=== PATIENT | female | born 2000 | race Caucasian/White ===

== ENCOUNTER 2019-01-19 14:22 | Emergency (ER) | payer SELFPAY ==
[2019-01-19 14:29] VITALS: BP 140/86
[2019-01-19] MEDS ORDERED: CEPHALEXIN 500 MG CAPSULE PO ONE (15:24)
[2019-01-19] MEDS ORDERED: ACETAMINOPHEN 325 MG TABLET PO ONE (15:24)
--- NOTE | 2019-01-19 15:24 | ER Document Report ---
ED ENT - General Chief Complaint: Ear Pain Stated Complaint: RIGHT EAR PAIN, SWELLING/PIERCING Time Seen by Provider: 01/19/19 14:48 Mode of Arrival: Ambulatory Information source: Patient Notes: 18-year-old female presented to ED for complaint of pain and swelling to the right ear. She states she had her ear pierced about 3 or 4 months ago and the site was not quite healed and that she changed her earrings yesterday because the first set was given her problem. She states the area became red and swollen after changing her earrings and now there is drainage and crustiness on the back of the earring. She also has a swollen lymph node just below the ear on the right. Patient is alert oriented respirations regular and unlabored speaking in full sentences walking with a even steady gait. TRAVEL OUTSIDE OF THE [place] IN LAST 30 DAYS: No - HPI Patient complains to provider of: Other - Cellulitis to the right ear Onset: Yesterday Onset/Duration: Gradual Quality of pain: Sharp, Other - Pressure Severity: Moderate Location of pain: Ears - Uvulitis to the right ear Associated symptoms: Other - Cellulitis to the right ear Similar symptoms previously: No Recently seen / treated by doctor: No - Related Data Allergies/Adverse Reactions: ibuprofen Allergy (Verified 01/19/19 14:26) naproxen [From Aleve] Allergy (Verified 01/19/19 14:26) Past Medical History - General Information source: Patient - Social History Smoking Status: Never Smoker - This vapor cigarette Frequency of alcohol use: Rare 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 " Lives with: Friend Family History: Reviewed & Not Pertinent Patient has suicidal ideation: No Patient has homicidal ideation: No - Past Medical History Cardiac Medical History: Reports: None Pulmonary Medical History: Reports: None EENT Medical History: Reports: None Neurological Medical History: Reports: None Endocrine Medical History: Reports: None Renal/ Medical History: Reports: None Malignancy Medical History: Reports: None GI Medical History: Reports: None Musculoskeletal Medical History: Reports Hx Musculoskeletal Trauma - Sprained wrist Skin Medical History: Reports None Psychiatric Medical History: Reports: Hx Anxiety, Hx Depression, Hx Post Traumatic Stress Disorder Traumatic Medical History: Reports: None Infectious Medical History: Reports: None Surgical Hx: Negative Past Surgical History: Reports: None - Immunizations Immunizations up to date: Yes Hx Diphtheria, Pertussis, Tetanus Vaccination: Yes Review of Systems - Review of Systems Constitutional: No symptoms reported EENT: Ear pain - Redness and inflammation and swelling to the right ear from an infected earring Cardiovascular: No symptoms reported Respiratory: No symptoms reported Gastrointestinal: No symptoms reported Genitourinary: No symptoms reported Female Genitourinary: No symptoms reported Musculoskeletal: No symptoms reported Skin: Change in color - Erythema swelling and inflammation with drainage from the ear ring site to the right ear Hematologic/Lymphatic: No symptoms reported Neurological/Psychological: No symptoms reported -: Yes All other systems reviewed and negative Physical Exam - Vital signs Vitals: Temp Pulse Resp BP Pulse Ox 98.2 F 111 H 16 140/86 H 99 01/19/19 14:28 01/19/19 14:28 01/19/19 14:28 01/19/19 14:28 01/19/19 14:28 Interpretation: Normal - General General appearance: Appears well, Alert - HEENT Head: Atraumatic, Tenderness - Right ear cellulitis Eyes: Normal Pupils: PERRL Ears: Other - Cellulitis to the outer cartilage of the right ear as well as lymphadenopathy behind the ear due to infected ear ring External canal: Normal Tympanic membrane: Normal Sinus: Normal Nasal: Normal Mouth/Lips: Normal Mucous membranes: Normal Pharynx: Normal Neck: Lymphadenopathy, Other - Lymphadenopathy to the lymph nodes behind the right ear - Respiratory Respiratory status: No respiratory distress Chest status: Nontender Breath sounds: Normal Chest palpation: Normal - Cardiovascular Rhythm: Regular Heart sounds: Normal auscultation Murmur: No - Abdominal Inspection: Normal Distension: No distension Bowel sounds: Normal Tenderness: Nontender Organomegaly: No organomegaly - Back Back: Normal, Nontender - Extremities General upper extremity: Normal inspection, Nontender, Normal color, Normal ROM, Normal temperature General lower extremity: Normal inspection, Nontender, Normal color, Normal ROM, Normal temperature, Normal weight bearing. No: Selam's sign - Neurological Neuro grossly intact: Yes Cognition: Normal Orientation: AAOx4 Golden Coma Scale Eye Opening: Spontaneous Jacquelin Coma Scale Verbal: Oriented Golden Coma Scale Motor: Obeys Commands Golden Coma Scale Total: 15 Speech: Normal Motor strength normal: LUE, RUE, LLE, RLE Sensory: Normal - Psychological Associated symptoms: Normal affect, Normal mood - Skin Skin Temperature: Warm Skin Moisture: Dry Skin Color: Normal Course - Re-evaluation Re-evalutation: 01/19/19 21:39 Is removed from the right ear and placed in a specimen container for patient to take home. Right ear was cleaned with Shur-Clens and rinsed and patient was started on Keflex and Tylenol was provided. Patient was given instructions on cleaning the site and leaving the earrings out until it is healed. Patient was discharged home with prescription for Keflex. Patient to follow-up with primary doctor. - Vital Signs Vital signs: Temp Pulse Resp BP Pulse Ox 98.2 F 111 H 16 140/86 H 99 01/19/19 14:28 01/19/19 14:28 01/19/19 14:28 01/19/19 14:28 01/19/19 14:28 Discharge - Discharge Clinical Impression: Cellulitis of right ear Condition: Stable Disposition: HOME, SELF-CARE Instructions: Family Physicians / Practices Additional Instructions: CELLULITIS: You have an infection of your skin and underlying soft tissues called cellulitis. This is due to bacteria, which can enter through any break in the skin, or even through an irritated hair follicle. Untreated, cellulitis will usually worsen. Antibiotics are required. Usually, warm packs or warm soaks, and elevation of the infected area are recommended. You should start getting better within 24 to 36 hours. Most infections respond quickly to the right medication. Follow-up care is important, however, to check for abscess (boil) formation, unsuspected foreign body, or resistant infection. If you develop fever, chills, or if the area of infection is becoming rapidly more swollen or painful, call the doctor at once. Cephalexin The antibiotic you've been prescribed is a member of the cephalosporin class. This type of antibiotic covers a wide variety of infections, including those of the skin, lungs, and urinary tract. It's useful for staph infections. This antibiotic is slightly similar to the penicillin family. In rare cases, a person who is allergic to penicillin will also be allergic to this medication. If you have had a severe allergic reaction to penicillin, and have not taken this antibiotic since that time, notify your doctor. Antibiotics which cover many germs ("broad spectrum" antibiotics) are more likely to cause diarrhea or "yeast" infections. Women prone to vaginal yeast problems may suffer an attack after taking this antibiotic. In infants, oral thrush (white spots "stuck" on the cheek) or yeast diaper rash may result. See your doctor if these problems occur. Call at once if you develop itching, hives, shortness of breath, or lightheadedness. Soap Cleansing Gently wash the wound daily using a mild soap (like Ivory, Phisoderm, Neutrogena). Use warm water, rubbing gently until all debris, ooze, and crusting have been washed from the wound. Allow to dry briefly (about 10 minutes) after cleaning. Repeat this cleansing at least three times a day for the first two days and then once or twice a day. FOLLOW-UP CARE: If you have been referred to a physician for follow-up care, call the physicians office for an appointment as you were instructed or within the next two days. If you experience worsening or a significant change in your symptoms, notify the physician immediately or return to the Emergency Department at any time for re-evaluation. Prescriptions: Cephalexin Monohydrate [Keflex 500 mg Capsule] 500 mg PO Q6H 5 Days capsule Forms: Elevated Blood Pressure, Smoking Cessation Education, Return to Work
== END 2019-01-19 15:31 | disposition home or self-care (01) ==
LOC: ER 14:22
DX: H60.11 Cellulitis of right external ear (principal); Z88.6 Allergy status to analgesic agent
CPT/HCPCS: 99282